=== PATIENT | female | born 1995 | race Two or more races ===

== ENCOUNTER 2017-06-17 19:20 | Emergency (ER) | payer SELFPAY ==
[~2017-06-17] VITALS: Ht 157.5 cm; Wt 48.5 kg
[2017-06-17] MEDS ORDERED: NKM (19:25)
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
[2017-06-17] MEDS ORDERED: Ketorolac 60mg Inj IM ONE (20:00)
[2017-06-17] MEDS ORDERED: Bacitracin Oint UD TOPIC ONE (20:00)
[2017-06-17 20:08] VITALS: BP 90/36
[2017-06-17] MEDS ORDERED: CYCLOBENZAPRINE10 MG ORAL ×2 (20:19→21:13)
[2017-06-17] MEDS ORDERED: IBUPROFEN600 MG ORAL ×2 (20:19→21:13)
[2017-06-17] MEDS ORDERED: BACITRACIN-P28.35 GM TP ×2 (20:19→21:13)
[2017-06-17 21:10] VITALS: BP 133/84
== END 2017-06-17 21:15 | disposition home or self-care (01) ==
LOC: EDBD 19:20 → EMR 20:39
DX: S46.912A Strain of unspecified muscle, fascia and tendon at shoulder and upper arm level, left arm, initial encounter (principal); S16.1XXA Strain of muscle, fascia and tendon at neck level, initial encounter; X58.XXXA Exposure to other specified factors, initial encounter; Y92.410 Unspecified street and highway as the place of occurrence of the external cause
CPT/HCPCS: 96372; 99284

== ENCOUNTER 2017-06-23 12:47 | Emergency (ER) | payer SELFPAY ==
[~2017-06-23] VITALS: Ht 157.5 cm; Wt 77.1 kg
[~2017-06-23 12:47] MED LIST: BACITRACIN-P28.35 GM TP; CYCLOBENZAPRINE10 MG ORAL; IBUPROFEN600 MG ORAL; NKM
[2017-06-23 12:51] VITALS: BP 97/58
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
[2017-06-23] MEDS ORDERED: MEDERMA20 GM TP (13:13)
== END 2017-06-23 13:30 | disposition home or self-care (01) ==
LOC: EMR 13:10
DX: Z13.89 Encounter for screening for other disorder (principal); V89.2XXD Person injured in unspecified motor-vehicle accident, traffic, subsequent encounter
CPT/HCPCS: 99283